=== PATIENT | male | born 1990 | race Caucasian/White ===

== ENCOUNTER 2024-03-27 11:11 | Emergency (ER) | payer OTHER, MEDICAID, SELFPAY ==
[2024-03-27] VITALS (10 sets, daily range): BP systolic 111–156; BP diastolic 51–108; PULSE 52–76; RESP 16–24; TEMP 36.5; O2SAT 98–100; BMI 21.7
--- NOTE | 2024-03-27 11:21 | EKG_ITS ---
[address] [address] [address], [place] [address] Test Date: 2024-03-27 Pat Name: Gm Cohen Department: Room: Gender: Male Net Coordinator: SHERRI : 1990 Requested By: Order Number: [id number] Reading MD: Naman Salgado MD Measurements Intervals [place] Rate: 73 P: 44 MD: 126 QRS: 86 QRSD: 96 T: 72 QT: 364 QTc: 401 Interpretive Statements Normal sinus rhythm Electronically Signed On 03-28-2024 6:50:23 PST by Naman Salgado MD
--- NOTE | 2024-03-27 11:22 | DI.RAD.S_ITS ---
PROCEDURE: XR CHEST 1V INDICATIONS: Chest pain TECHNIQUE: One view of the chest was acquired. COMPARISON: None. FINDINGS: Surgical changes and devices: None. Lungs and pleura: Lungs are clear. No pleural effusions or pneumothorax. Mediastinum: Mediastinal contours appear normal. Heart size is normal. Bones and chest wall: No suspicious bony lesions. Overlying soft tissues appear unremarkable. IMPRESSION: No acute cardiopulmonary abnormality is seen. Dictated by: Maximiliano Nascimento M.D. on 03/27/2024 at 12:28 Approved by: Maximiliano Nascimento M.D. on 03/27/2024 at 12:39
--- NOTE | 2024-03-27 11:26 | ED_ITS ---
HPI - Chest Pain General Chief Complaint: Chest Pain Stated Complaint: rule out coronary syndrome, sent by [facility] Time Seen by Provider: 03/27/24 11:19 Source: patient Mode of arrival: Ambulatory History of Present Illness HPI narrative: Patient is a 33-year-old male who on Wednesday of last week was seen at an outside walk-in clinic for chest discomfort. He was told that if his symptoms worsen or do not get better that he needs to return to the emergency department. He states that for the past several days he has had ?sharp? and ?dull? chest discomfort. Not particularly worse with palpation. Is somewhat worse with some lightheadedness with standing. Has not tried anything for the symptoms prior to arrival. Related Data Allergies Allergy/AdvReac Type Severity Reaction Status Date / Time No Known Drug Allergies Allergy Verified 03/27/24 11:21 Review of Systems Review of Systems ROS Unobtainable: All systems reviewed & are unremarkable except as noted in HPI and below Patient History Social History Smoking Status: Never smoker Smoking Status: Never smoker Exam Initial Vital Signs Initial Vital Signs: Vital Signs Temperature 97.7 F 03/27/24 11:19 Pulse Rate 72 03/27/24 11:19 Respiratory Rate 16 03/27/24 11:19 Blood Pressure 156/93 H 03/27/24 11:19 Pulse Oximetry 100 03/27/24 11:19 Oxygen Delivery Method Room Air 03/27/24 11:19 Const General: cooperative and No ill appearing HENMT Head: normal to inspection and normocephalic Chest Chest: No crepitus and No tenderness Resp Effort & Inspection: normal respiratory effort Auscultation: clear to auscultation bilaterally Cardio Rate: regular rate Rhythm: regular rhythm GI Inspection: normal to inspection and non-distended Skin General: no rashes or lesions noted Neuro General: patient alert and patient awake Course Orders Ordered: ED Orders 03/27/24 11:20 EKG-12 Lead Stat 03/27/24 11:22 XR chest 1V Stat 03/27/24 11:25 Complete Blood Count AUTO DIFF Stat Comprehensive Metabolic Panel Stat Lipase Stat Troponin & CK Cardiac Panel Stat Vital Signs Vital signs: Vital Signs - 8 hr 03/27/24 11:19 03/27/24 11:20 03/27/24 11:24 Temperature 97.7 F Pulse Rate 72 69 54 L Respiratory Rate 16 24 Blood Pressure 156/93 H Pulse Oximetry 100 100 Oxygen Delivery Method Room Air 03/27/24 11:24 03/27/24 11:30 03/27/24 11:31 Temperature Pulse Rate 66 Respiratory Rate 20 Blood Pressure 131/108 H 113/72 Pulse Oximetry 100 Oxygen Delivery Method 03/27/24 11:31 03/27/24 12:00 03/27/24 12:01 Temperature Pulse Rate 76 54 L 52 L Respiratory Rate 24 Blood Pressure Pulse Oximetry 98 99 100 Oxygen Delivery Method 03/27/24 12:01 03/27/24 12:30 03/27/24 12:30 Temperature Pulse Rate 65 Respiratory Rate 20 Blood Pressure 111/51 L 120/60 Pulse Oximetry 98 Oxygen Delivery Method MDM - Chest Pain Lab Data Attestation: I reviewed the patient's lab results. 03/27/24 11:25 03/27/24 11:25 Labs: Lab Results 03/27/24 Range/Units 11:25 WBC 6.2 (4.5-11.0) X10^3/uL RBC 5.04 (4.5-5.9) X10^6/uL Hgb 15.4 (13.5-17.5) g/dL Hct 44.8 (41-53) % MCV 88.9 (80-100) fL MCH 30.5 (26-34) PG MCHC 34.3 (30-36) % RDW 13.0 (11.6-14.8) % Plt Count 180 (150-400) X10^3/uL Neut % (Auto) 52.0 (50-75) % Lymph % (Auto) 36.4 (25-40) % [place] % (Auto) 10.0 (3-14) % Eos % (Auto) 1.0 L (2-4) % Baso % (Auto) 0.6 (0-2) % Neut # (Auto) 3200 (6101-1573) /uL Lymph # (Auto) 2200 (6397-1032) /uL [place] # (Auto) 600 (0-900) /uL Eos # (Auto) 100 (0-450) /uL Baso # (Auto) 0 (0-100) /uL Sodium 138 (137-145) mmol/L Potassium 3.4 (3.4-5.1) mmol/L Chloride 105 (98-107) mmol/L Carbon Dioxide 24 (22-32) mmol/L BUN 19 (9-20) mg/dL Creatinine 1.00 (0.66-1.25) mg/dL Estimated GFR > 60 (>60) mL/min BUN/Creatinine Ratio 19.0 (6-22) Glucose 99 (70-100) mg/dL Calcium 9.8 (8.4-10.2) mg/dL Total Bilirubin 0.8 (0.2-1.3) mg/dL AST 31 (17-59) IU/L ALT 22 (<50) IU/L Alkaline Phosphatase 54 (38-126) U/L Total Creatine Kinase 117 (55-170) U/L Troponin I < 0.012 (0.01-0.034) ng/mL Total Protein 8.0 (6.3-8.2) g/dL Albumin 5.0 (3.5-5.0) g/dL Globulin 3.0 (1.7-4.1) g/dL Albumin/Globulin Ratio 1.7 (1.0-2.8) Lipase 171 (23-300) U/L Imaging Data Chest x-ray: Radiologist's Impression: PROCEDURE: XR CHEST 1V INDICATIONS: Chest pain TECHNIQUE: One view of the chest was acquired. COMPARISON: None. FINDINGS: Surgical changes and devices: None. Lungs and pleura: Lungs are clear. No pleural effusions or pneumothorax. Mediastinum: Mediastinal contours appear normal. Heart size is normal. Bones and chest wall: No suspicious bony lesions. Overlying soft tissues appear unremarkable. IMPRESSION: No acute cardiopulmonary abnormality is seen. ECG Data Attestation: I personally reviewed and interpreted this ECG as follows: Interpretation: Sinus rhythm Ventricular rate is 73 Normal axis Normal QRS Normal QTC No ST T wave changes MDM Narrative Medical decision making narrative: Patient was low risk. Chest x-ray is unremarkable. EKG is nonischemic. Troponin is negative. Patient was not in heart failure. I have low suspicion for pulmonary embolism. I do suspect a degree of anxiety based on his presentation today. Provided reassurance to the patient that his workup here in the emergency department is very reassuring. Advised that he contact his primary doctor for a follow-up. He expressed understanding and agreement with plan. Discharge Plan Departure Patient Disposition: Home Clinical Impression: Atypical chest pain Instructions: DI for Atypical Chest Pain Activity Restrictions/Additional Instructions: You can contact [phone] during business hours to help you establish a primary doctor here in the local area. I can provide reassurance that your workup here for your heart and lungs looks very good. Please return to the emergency department for new or worsening symptoms. Stand Alone Forms: Patient Portal/API/Survey
[2024-03-27 11:48] LABS: Alanine Aminotransferase 22 IU/L (<50); Albumin Globulin Ratio 1.7 (1.0-2.8); Alkaline Phosphatase 54 U/L (38-126); Aspartate Aminotransferase 31 IU/L (17-59); Bilirubin Total 0.8 mg/dL (0.2-1.3); Blood Urea Nitrogen 19 mg/dL (9-20); Calcium 9.8 mg/dL (8.4-10.2); Carbon Dioxide 24 mmol/L (22-32); Chloride 105 mmol/L (98-107); Creatine Kinase 117 U/L (55-170); Estimated Glomerular Filt Rate > 60 mL/min (>60); Glucose 99 mg/dL (70-100); HEMOLYSIS < 15 (0-50); Lipase 171 U/L (23-300); Potassium 3.4 mmol/L (3.4-5.1); Sodium 138 mmol/L (137-145)
[2024-03-27 11:55] LABS: Add Manual Diff / Slide Review NO; Basophils Absolute Auto 0 /uL (0-100); Basophils Percent Auto 0.6 % (0-2); Eosinophils Absolute Auto 100 /uL (0-450); Hematocrit 44.8 % (41-53); Hemoglobin 15.4 g/dL (13.5-17.5); Lymphocytes Absolute Auto 2200 /uL (1100-4500); Lymphocytes Percent Auto 36.4 % (25-40); Mean Corpuscular HGB Conc 34.3 % (30-36); Mean Corpuscular Hemoglobin 30.5 PG (26-34); Mean Corpuscular Volume 88.9 fL (80-100); Monocytes Absolute Auto 600 /uL (0-900); Neutrophils Absolute Auto 3200 /uL (1500-7000); Platelet Count 180 X10^3/uL (150-400); Red Blood Cell Count 5.04 X10^6/uL (4.5-5.9); White Blood Cell Count 6.2 X10^3/uL (4.5-11.0)
[2024-03-27 11:59] LABS: Troponin I < 0.012 ng/mL (0.01-0.034)
== END 2024-03-27 13:17 | disposition home or self-care (01) ==
PROVIDERS: Emergency Provider Emergency Medicine
DX: R07.89 Other chest pain (principal)
CPT/HCPCS: 36415; 71045; 80053; 82550; 83690; 84484; 85025; 93005; 93010; 99283; 99284